=== PATIENT | female | born 1965 | race Caucasian/White ===

== ENCOUNTER → 2018-09-17 | Emergency (ER) | payer OTHER ==
[~2018-09-17] VITALS: Ht 170.2 cm; Wt 63.0 kg
[~2018-09-17] MED LIST: SYNTHROID100 MCG; SYNTHROID75 MCG
== END | disposition left against medical advice (07) ==
LOC: ER 08:29
DX: Z53.20 Procedure and treatment not carried out because of patient's decision for unspecified reasons (principal)

== ENCOUNTER 2018-10-16 17:32 | Emergency (ER) | payer OTHER ==
[~2018-10-16] VITALS: Ht 170.2 cm; Wt 64.4 kg
== END 2018-10-16 21:16 | disposition home or self-care (01) ==
LOC: ER 17:32
DX: M17.12 Unilateral primary osteoarthritis, left knee (principal); K59.09 Other constipation

== ENCOUNTER 2021-03-11 15:11 | Emergency (ER) | payer OTHER ==
[~2021-03-11] VITALS: Ht 170.2 cm; Wt 59.9 kg
[2021-03-11] MEDS ORDERED: NASAL MIST126 ML (21:12)
== END 2021-03-11 21:23 | disposition home or self-care (01) ==
LOC: ER 15:11
DX: R10.32 Left lower quadrant pain (principal)

== ENCOUNTER 2024-05-26 08:14 | Emergency (ER) | payer OTHER ==
[~2024-05-26] VITALS: Ht 170.2 cm; Wt 59.9 kg
[~2024-05-26 08:14] MED LIST changes: +NASAL MIST126 ML
[2024-05-26 08:20] VITALS: BP 134/73; O2SAT 100
[2024-05-26] MEDS ORDERED: HYOSCYAMINE SULFATE 0.125 MG TAB.SUBL SL ONE (09:00)
[2024-05-26 09:22] LABS: URINE APPEARANCE Clear; URINE BILIRRUBIN Negative (NEGATIVE); URINE BLOOD Negative; URINE COLOR Dark Yellow; URINE GLUCOSE Negative (NEGATIVE); URINE KETONE Trace (NEGATIVE); URINE LEUKOCYTE Small; URINE NITRATE Negative; URINE PROTEIN Negative (NEGATIVE)
[2024-05-26 09:25] LABS: URINE BACTERIA 161.2 uL (0.0-1933); URINE EPITHELIAL CELLS 8.4 uL (0.0-38.8); URINE RBC 12.3 uL (0.0-20.8); URINE WBC 32.9 uL (0.0-23.2)
[2024-05-26 09:35] LABS: URINE CAST 0.15 uL (0.0-1.40)
[2024-05-26 09:38] LABS: HEMATOCRIT 43.7 % (36.0-45.00); HEMOGLOBIN 14.5 g/dL (12.0-15.00); MEAN CORPUSCULAR HEMOGLOBIN 33.9 pg (27.00-32.0); MEAN CORPUSCULAR HGB CONC 33.2 g/dl (32.0-36.0); PLATELET COUNT 147 K/uL (150-450); RED BLOOD COUNT 4.28 M/uL (4.00-6.00); RED CELL DISTRIBUTION WIDTH 12.7 % (11.5-14.5)
[2024-05-26 09:51] LABS: ALBUMIN 3.8 gm/dL (3.4-5.0); BILIRUBIN TOTAL 0.39 mg/dL (0.3-1.2); BILIRUBIN,CONJUGATED 0.13 mg/dL (0.0-0.2); BILIRUBIN,UNCONJUGATED 0.26 mg/dL (0.0-0.6); CALCIUM 8.9 mg/dL (8.5-10.1); CREATININE SERUM 0.73 mg/dL (0.55-1.02); GFR 82.17; POTASSIUM 4.62 mEq/L (3.5-5.1); TOTAL PROTEIN 6.9 gm/dL (6.4-8.2)
[2024-05-26] MEDS ORDERED: MAGNESIUM HYDROXIDE 30 ML BLIST.PACK PO STA (10:56)
[2024-05-26] MEDS ORDERED: LACTULOSE 20 G/30 ML BLIST.PACK PO STA (11:01)
== END 2024-05-26 11:37 | disposition home or self-care (01) ==
LOC: ER 08:16
PROVIDERS: General Practice
DX: R10.11 Right upper quadrant pain (principal); Z85.89 Personal history of malignant neoplasm of other organs and systems; Z88.0 Allergy status to penicillin; K59.00 Constipation, unspecified

== ENCOUNTER 2025-03-09 09:46 | Emergency (ER) | payer OTHER ==
[~2025-03-09] VITALS: Ht 170.2 cm; Wt 61.7 kg
[2025-03-09] MEDS ORDERED: PANTOPRAZOLE SODIUM 40 MG/VIAL VIAL IV PUSH ONE (11:00)
== END 2025-03-09 11:28 | disposition home or self-care (01) ==
LOC: ER 09:46
DX: K21.9 Gastro-esophageal reflux disease without esophagitis (principal); R07.89 Other chest pain; E03.9 Hypothyroidism, unspecified; Z88.0 Allergy status to penicillin